=== PATIENT | female | born 1940 | race Caucasian/White ===

== ENCOUNTER 2016-07-07 14:01 | Emergency (ER) | payer MEDICARE ==
[~2016-07-07] VITALS: Ht 157.5 cm; Wt 99.8 kg
[2016-07-07 14:01] VITALS: BP 133/64
[~2016-07-07 14:01] MED LIST changes: -EVIS1TAB PO; -PREV10CA PO
[2016-07-07] MEDS ORDERED: EVIS1TAB PO (14:15)
[2016-07-07] MEDS ORDERED: PREV10CA PO (14:15)
== END 2016-07-07 15:47 | disposition home or self-care (01) ==
LOC: M ED 15:36
DX: K62.5 Hemorrhage of anus and rectum (principal); L30.9 Dermatitis, unspecified

== ENCOUNTER → 2016-07-07 | Outpatient (CLI) | payer MEDICARE ==
[~2016-07-07] MED LIST: /QUIN20TA OR; ASPI81TA45 OR; ATEN100T OR; AVISTA PO; COLA100C2 OR; EVIS1TAB PO; FURO20TA2 OR; PERC7.5T8 OR; PREV10CA PO; QUINIPRIL PO; RALOXIFENE PO; VIT D 2000
[2016-07-07 13:15] LABS: BASO # 0.1 K/mm3 (0.0-0.2); BASO % 0.5 % (0.0-1.0); EOS # 0.1 K/mm3 (0.0-0.50); EOS % 0.7 % (0.0-3.0); LARGE UNSTAINED CELL # 0.1 K/mm3 (0.0-0.4); LARGE UNSTAINED CELL % 0.7 % (0.0-4.0); LYMPH # 0.9 K/mm3 (1.5-4.5); LYMPH % 7.1 % (24.0-44.0); MEAN CORPUSCULAR HEMOGLOBIN 30.2 pg (27.0-33.0); MEAN CORPUSCULAR HGB CONC 31.7 g/dl (32.0-36.5); MEAN CORPUSCULAR VOLUME 95.4 fl (80.0-96.0); MONO # 0.4 K/mm3 (0.0-0.8); MONO % 2.9 % (0.0-5.0); NEUTROPHILS # 10.7 K/mm3 (1.8-7.7); NEUTROPHILS % 88.1 % (36.0-66.0); PLATELET COUNT, AUTOMATED 201 k/mm3 (150-450); RED CELL DISTRIBUTION WIDTH 13.3 % (11.5-14.5); WHITE BLOOD COUNT 12.1 K/mm3 (4.0-10.0)
[2016-07-07 13:30] LABS: ALBUMIN 3.7 GM/DL (3.2-5.2); ALBUMIN/GLOBULIN RATIO 1.48 (1.00-1.93); ALKALINE PHOSPHATASE 58 U/L (45-117); ALT/SGPT 20 U/L (12-78); ANION GAP 9 MEQ/L (8-16); AST/SGOT 17 U/L (15-37); BILIRUBIN,TOTAL 0.5 MG/DL (0.2-1.0); BLOOD UREA NITROGEN 13 MG/DL (7-18); CALCIUM LEVEL 9.2 MG/DL (8.8-10.2); CARBON DIOXIDE LEVEL 30 MEQ/L (21-32); CHLORIDE LEVEL 105 MEQ/L (98-107); CREATININE FOR GFR 0.83 MG/DL (0.55-1.02); GLOMERULAR FILTRATION RATE > 60.0 (>39); GLUCOSE, FASTING 82 MG/DL (83-110); POTASSIUM SERUM 3.9 MEQ/L (3.5-5.1); SODIUM LEVEL 144 MEQ/L (136-145); TOTAL PROTEIN 6.2 GM/DL (6.4-8.2)
--- NOTE | 2016-07-08 05:38 | REP ---
ABDOMEN, FLAT AND UPRIGHT; PA CHEST, THREE VIEWS: HISTORY: Constipation. A small amount of air is present in small and large intestine. There are no air fluid levels or dilated loops of intestine. There is no pneumoperitoneum. Linear density is present in the left lower lobe consistent with atelectasis or scar. The right lung is clear. IMPRESSION: Nonspecific bowel gas pattern. Signed by Brandyn Byrne MD 07/08/2016 08:15 A
== END ==
LOC: M WUC 09:45
PROVIDERS: ATTEND Physician Assistant
DX: K59.00 Constipation, unspecified (principal); R10.819 Abdominal tenderness, unspecified site

== ENCOUNTER → 2016-07-23 | Outpatient (REF) | payer MEDICARE ==
[~2016-07-23] MED LIST changes: +EVIS1TAB PO; +PREV10CA PO
[2016-07-23 14:05] LABS: IMMUNOGLOBULIN G 631 MG/DL (681-1648); IMMUNOGLOBULIN M 34.2 MG/DL (40-230)
[2016-07-25 00:06] LABS: FREE KAPPA LIGHT CHAINS SERUM 13.06 mg/L (3.30-19.40); FREE LAMBDA LIGHT CHAINS SERUM 7.68 mg/L (5.71-26.30); KAPPA/LAMBDA RATIO SERUM 1.7 (0.26-1.65)
[2016-07-25 13:42] LABS: ALBUMIN 3.88 GM/DL (3.29-5.55); ALBUMIN % 64.6 % (55.8-66.1)
== END ==
LOC: M LAB REF 13:08
PROVIDERS: ATTEND Internal Medicine Medical Oncology
DX: C18.9 Malignant neoplasm of colon, unspecified (principal); D47.2 Monoclonal gammopathy

== ENCOUNTER → 2016-07-29 | Outpatient (REF) | payer MEDICARE | LOC: M LAB REF 16:30 | PROVIDERS: ATTEND Nurse Practitioner Family | DX: B00.1 Herpesviral vesicular dermatitis (principal) ==

== ENCOUNTER → 2016-09-19 | Day surgery (SDC) | payer MEDICARE ==
--- NOTE | 2016-09-17 06:29 | CR ---
DATE OF PREOPERATIVE CONSULTATION: 09/16/2016 REQUESTING PHYSICIAN: Dr. Guerrero. To Dr. Guerrero, thank you for asking me to see Ms. Hannah Parry in consultation prior to her dilation and curettage (D and C) hysteroscopy. Ms. Parry is as you know a 76-year-old female with past medical history of colon cancer, hypertension, hyperlipidemia, and monoclonal gammopathy of unknown significance (MGUS), presenting for preoperative optimization. The patient has had a significant decline in her cognitive function over the last several years. She is accompanied by her cousin who assists with answering questions. The patient denies any present symptoms of chest pain, palpitations, syncope or presyncope. She reports her balance is worse and she admits that she has fallen once recently but sustained no significant injuries. The patient's family member who accompanies her today requests that I restart Aricept. The patient had discontinued it in June when I saw her for her annual physical as she felt it was not necessary. Caregiver and son are requesting this be restarted. The patient is questioned about recent bout of shingles. She is unable to recall at and denies any residual pain. The patient complains of a decline in her vision. She was confused and left her recent office call with Dr. Oh before being seen. Patient has MGUS. She was followed by oncology and felt to be stable. She is scheduled to be seen every six months. The patient has had no vaginal bleeding. She does have known endometrial thickening and is being evaluated with Dr. Guerrero with the hysteroscopy D and C. The patient was seen for bleeding earlier this year in Urgent Care and ended up in the emergency room (ER). It was unclear the etiology. She has a known history of colon cancer but is up-to-date with her last colonoscopy October 2015. Bleeding was empirically treated as hemorrhoidal. There has been no recurrence and no significant drop in her hemoglobin. The patient has hyperglycemia. Denies polyuria, polyphasia, polydipsia. Review of systems is otherwise negative. PAST MEDICAL HISTORY 1. Moderately differentiated colon cancer 2010, status post laparoscopic resection with Dr. Patrick. Last colonoscopy normal 10/23. Follows with hematology/oncology. 2. Hypertension. 3. Hyperlipidemia. 4. Obesity. 5. Osteopenia. 6. Status post appendectomy. 7. Hemorrhoids. 8. Endometrial thickening with adenomatous hyperplasia status post D and C in 2002, and endometrial biopsy in 2010. 9. Hepatic cyst by CT, felt to be benign and stable. 10. Osteopenia. 11. Hyperglycemia. 12. Vitamin D deficiency. 13. Right cheek squamous well cell cancer. 14. Monoclonal gammopathy followed by hematology/oncology. 15. Dementia 2016 with normal thyroid stimulating hormone (TSH), B12, venereal disease research laboratory (VDRL) and head CT showing only small vessel disease and mild to moderate cerebral atrophy temporal lobes. 16. Osteoarthritic degenerative joint disease (DJD) with an MRI of the lumbosacral (LS) spine 07/21/2015. 17. Ovarian cyst per CT scan 2015, 5 cm. PATIENT'S MEDICATIONS: - she is on aspirin 325 mg daily as needed - quinapril 40 mg daily - furosemide 20 mg by mouth twice a day - atenolol 50 mg one and a half by mouth daily - Evista 60 mg daily ALLERGIES: The patient's drug allergies are to HYDROCHLOROTHIAZIDE, NORVASC and TETRACYCLINE. FAMILY HISTORY: The patient's family history includes heart disease in the father, a stroke in her mother, brother and sister. SOCIAL HISTORY: The patient has never smoked, occasionally consumes alcohol. PHYSICAL EXAMINATION: Overweight female in no acute distress. Vital signs are weight 221 with a blood pressure 169, recheck 144/80, heart rate is 59, O2 saturation is 98%, and body mass index (BMI) of 39.5. HEENT exam: Head is normocephalic. Neck is supple. Pupils equal, reactive to light. External ocular movements intact. She does wear eyeglasses. Conjunctivae not injected. Sclerae anicteric. Vision grossly intact. Ears: Tympanic membranes, external auditory canals are normal. Tongue midline. Posterior pharynx without inflammation. NECK: Is supple. No thyromegaly, jugular venous distention (JVD) or carotid bruits. RESPIRATORY: Clear to auscultation, resonant to percussion. CARDIOVASCULAR: Regular rate and rhythm. No murmur, rub, gallop. ABDOMEN: Normoactive bowel sounds, soft, nontender. No hepatosplenomegaly. EXTREMITIES: No cyanosis, clubbing or edema. NEUROLOGIC: The patient is able to follow my instructions and answer my questions. She is mildly pleasantly confused. LABORATORY DATA: 09/16/2016: Normal CBC, med profile. Her A1c is 5.7 and total cholesterol of 230 with an HDL of 111. Her EKG is sinus bradycardia rate of 55, axis of minus 2 degrees, normal ND, QRS intervals but slight increase in QTC. No significant change to previous EKG except for the slight increase in QTC. IMPRESSION: Ms. Hannah Parry is a 76-year-old female with cardiovascular risk factors positive for age, obesity, hypertension, who has no signs or symptoms indicative of cardiovascular ischemia and is felt to be at low risk for cardiovascular complications from the proposed surgical intervention which can be further minimized by the followin. Hypertension. Hold furosemide morning of surgery. Take atenolol and quinapril as usual. 2. Osteopenia. Hold Evista on morning of surgery. 3. Alzheimer's dementia. Restart donepezil 5 mg at bedtime, increased to 10 mg next as it is tolerated, She will restart donepezil one week after her surgery. 4. Colon cancer. No evidence of recurrence per colonoscopy 10/23. She did have bleeding earlier this year. Source was unclear, expected to be hemorrhoidal, but there has been no recurrence and no significant drop in her hemoglobin. We have held off on further evaluation and treatment. 5. Hyperglycemia. Dietary advice encouraged. 6. Hyperlipidemia. Triglycerides improved and the patient commended. 7. Osteoarthritic degenerative joint disease (OA DJD). Hold aspirin. Take Tylenol as needed. 8. Monoclonal gammopathy of unknown significance (MGUS). Follows with Dr. Benitez. 9. Visual decline. She will stop in to Dr. Oh's office today and try to get an appointment. Thank you very much for this consultation. Please call with questions or concerns.
[~2016-09-19] VITALS: Ht 157.5 cm; Wt 99.8 kg
[~2016-09-19] MED LIST changes: +ALEV220C2 PO; +AMLO5TAB2 PO; +ATEN50TA2 PO; +DONETAB6 PO; +FURO20TA2 PO; +FURO40TA2 PO; +IBUPROFEN 600 MG TAB PO PRN; +LIDOCAINE 2% INJ 100 MG/5 ML SDV (FOR ANES.) As Ordered ONE; +LR 1,000 ML IV ONE; +LR 1,000 ML IV SCH; +MIDAZOLAM INJ 2 MG/2 ML VIAL (J2250) As Ordered ONE; +ONDANSETRON 4MG/2ML VIAL (J2405) As Ordered ONE; +ONDANSETRON 4MG/2ML VIAL (J2405) IV PRN; +PERCOCET 5MG/325MG TAB PO PRN; +PROPOFOL 200 MG/20 ML VIAL As Ordered ONE; +QUIN1TAB15 PO; +SULA8.5T PO; +ZYRT10CA PO; +fentaNYL 100 MCG/2 ML INJECTION (J3010) As Ordered ONE; +fentaNYL 100 MCG/2 ML INJECTION (J3010) IV PRN
[2016-09-19 18:30] VITALS: BP 167/70
--- NOTE | 2016-09-20 13:39 | RO ---
DATE OF PROCEDURE: 09/19/2016 PREOPERATIVE DIAGNOSIS/INDICATION FOR SURGERY: Postmenopausal bleeding with abnormal ultrasound. POSTOPERATIVE DIAGNOSIS: Postmenopausal bleeding with abnormal ultrasound, endometrial polyp. PROCEDURE PERFORMED: Dilatation and curettage, hysteroscopy, MyoSure, resection of polyp. SURGEON: Joy Guerrero MD DELIVERY CLERK: ANESTHESIA: Laryngeal mask airway (LMA). BRIEF DESCRIPTION OF PROCEDURE AND FINDINGS: Hannah was brought to the operating room where sufficient LMA anesthesia was induced and she was prepped, draped and positioned in the usual sterile fashion with the bladder emptied and the anterior aspect of the cervix grasped with a single tooth tenaculum as the uterus would be accessible from below should that become necessary in the future. The cervix was carefully dilated and the hysteroscope placed, at which point a cavity filling polyp was noted with a lingular shape arising from the posterior fundal aspect of the uterus. This polypoid lesion was resected using the MyoSure in its entirety. After removing the entire lesion and the stalk, and then also sampling the endometrium and endocervical tissues, curettage was also carried out. Pictures were of course taken to document the procedure. The procedure was then ended. ESTIMATED BLOOD LOSS FOR PROCEDURE: About 5 mL. FLUID REPLACEMENT: Crystalloid. COMPLICATIONS: None. CONDITION AND DISPOSITION: Hannah tolerated the procedure well and was recovering in the recovery room in good condition.
== END | disposition home or self-care (01) ==
LOC: M SDC 13:09
PROVIDERS: ATTEND Obstetrics & Gynecology
DX: N95.0 Postmenopausal bleeding (principal); N84.0 Polyp of corpus uteri; R93.5 Abnormal findings on diagnostic imaging of other abdominal regions, including retroperitoneum; I10 Essential (primary) hypertension; F03.90 Unspecified dementia, unspecified severity, without behavioral disturbance, psychotic disturbance, mood disturbance, and anxiety; M12.9 Arthropathy, unspecified; E78.5 Hyperlipidemia, unspecified; D47.2 Monoclonal gammopathy; E66.9 Obesity, unspecified; M85.80 Other specified disorders of bone density and structure, unspecified site; K64.9 Unspecified hemorrhoids; K76.89 Other specified diseases of liver; R73.9 Hyperglycemia, unspecified; M51.37 Other intervertebral disc degeneration, lumbosacral region; N83.209 Unspecified ovarian cyst, unspecified side; Z88.1 Allergy status to other antibiotic agents; Z88.2 Allergy status to sulfonamides; Z88.8 Allergy status to other drugs, medicaments and biological substances; Z79.899 Other long term (current) drug therapy; Z85.030 Personal history of malignant carcinoid tumor of large intestine
CPT/HCPCS: 58558; 88305; J2250; J2405; J3010

== ENCOUNTER 2016-10-08 11:36 | Observation (INO) | payer MEDICARE ==
[~2016-10-08] VITALS: Ht 162.6 cm; Wt 97.6 kg
[~2016-10-08 11:36] MED LIST changes: -ALEV220C2 PO; -AMLO5TAB2 PO; -DONETAB6 PO; -FURO20TA2 PO; -IBUPROFEN 600 MG TAB PO PRN; -LIDOCAINE 2% INJ 100 MG/5 ML SDV (FOR ANES.) As Ordered ONE; -LR 1,000 ML IV ONE; -LR 1,000 ML IV SCH; -MIDAZOLAM INJ 2 MG/2 ML VIAL (J2250) As Ordered ONE; -ONDANSETRON 4MG/2ML VIAL (J2405) As Ordered ONE; -ONDANSETRON 4MG/2ML VIAL (J2405) IV PRN; -PERCOCET 5MG/325MG TAB PO PRN; -PROPOFOL 200 MG/20 ML VIAL As Ordered ONE; -SULA8.5T PO; -ZYRT10CA PO; -fentaNYL 100 MCG/2 ML INJECTION (J3010) As Ordered ONE; -fentaNYL 100 MCG/2 ML INJECTION (J3010) IV PRN
[2016-10-08] MEDS ORDERED: SULA8.5T PO (11:52)
[2016-10-08] MEDS ORDERED: ZYRT10CA PO (11:52)
[2016-10-08] MEDS: NS 1,000 ML IV SCH ×2 (12:08→16:36)
[2016-10-08] MEDS ORDERED: CHARCOAL ACTIVATED LIQUID 25 GM/120 ML BTL PO ONE (12:30)
[2016-10-08 13:10] LABS: BASO % 0.9 % (0.0-1.0); EOS # 0.1 K/mm3 (0.0-0.50); EOS % 1.2 % (0.0-3.0); LARGE UNSTAINED CELL # 0.1 K/mm3 (0.0-0.4); LARGE UNSTAINED CELL % 1.5 % (0.0-4.0); LYMPH # 1.5 K/mm3 (1.5-4.5); LYMPH % 26.1 % (24.0-44.0); MEAN CORPUSCULAR HEMOGLOBIN 32.4 pg (27.0-33.0); MEAN CORPUSCULAR HGB CONC 33.7 g/dl (32.0-36.5); MEAN CORPUSCULAR VOLUME 96.2 fl (80.0-96.0); MONO # 0.3 K/mm3 (0.0-0.8); MONO % 5.3 % (0.0-5.0); NEUTROPHILS # 3.6 K/mm3 (1.8-7.7); PLATELET COUNT, AUTOMATED 210 k/mm3 (150-450); RED CELL DISTRIBUTION WIDTH 13.4 % (11.5-14.5); WHITE BLOOD COUNT 5.6 K/mm3 (4.0-10.0)
[2016-10-08 13:17] LABS: ALBUMIN 3.7 GM/DL (3.2-5.2); ALBUMIN/GLOBULIN RATIO 1.37 (1.00-1.93); ALKALINE PHOSPHATASE 56 U/L (45-117); ALT/SGPT 23 U/L (12-78); ANION GAP 11 MEQ/L (8-16); AST/SGOT 19 U/L (15-37); BILIRUBIN,DIRECT 0.2 MG/DL (0.0-0.2); BILIRUBIN,TOTAL 0.5 MG/DL (0.2-1.0); BLOOD UREA NITROGEN 12 MG/DL (7-18); CALCIUM LEVEL 9.3 MG/DL (8.8-10.2); CARBON DIOXIDE LEVEL 24 MEQ/L (21-32); CHLORIDE LEVEL 107 MEQ/L (98-107); CREATININE FOR GFR 0.85 MG/DL (0.55-1.02); GLOMERULAR FILTRATION RATE > 60.0 (>39); GLUCOSE, FASTING 93 MG/DL (83-110); POTASSIUM SERUM 3.6 MEQ/L (3.5-5.1); SODIUM LEVEL 142 MEQ/L (136-145); TOTAL PROTEIN 6.4 GM/DL (6.4-8.2)
[2016-10-08] MEDS ORDERED: DONETAB6 PO (13:53)
[2016-10-08] MEDS ORDERED: FURO20TA2 PO (13:53)
[2016-10-08] MEDS ORDERED: ALEV220C2 PO (13:53)
[2016-10-08] MEDS ORDERED: ONDANSETRON 4MG/2ML VIAL (J2405) IV PRN (14:30)
[2016-10-08] MEDS ORDERED: ACETAMINOPHEN TAB 650MG DOSE (2X325MG) PO PRN (14:30)
[2016-10-08 16:30] VITALS: BP 145/91
[2016-10-08] MEDS: SENOKOT S TAB PO SCH ×2 (16:39→21:00)
[2016-10-08] MEDS: HEPARIN SOD (PORCINE) 5000 UNITS/ML VIAL SC SCH ×2 (16:40→21:32)
[2016-10-08 20:00] VITALS: BP 171/75
--- NOTE | 2016-10-08 22:39 | HPE ---
DATE OF ADMISSION: 10/08/2016 TIME PATIENT WAS SEEN: 1300. PRIMARY CARE PROVIDER: Dr. Dorcas Mckenna. CHIEF COMPLAINT: Overdose. HISTORY OF PRESENT ILLNESS: A 76-year-old female with a past medical history of colon cancer, hypertension, hyperlipidemia, monoclonal gammopathy of determined significance (MGUS), hyperglycemia, endometrial thickening with hyperplasia, osteopenia, hemorrhoid, vitamin D deficiency, right cheek squamous cell carcinoma, Alzheimer dementia, osteoarthritis, visual decline, cholelithiasis, presented with possible overdose on calcium channel ketan. Patient was interviewed in the emergency room. Patient appear to be an extremely poor historian. Was at least moderately to severely demented. Patient does not remember what happened. Patient told me possibly she took five pills of her calcium channel ketan, which is nisoldipine five pills more than what she should have been taking. She stated that she just picked up the medication yesterday; however, this morning she took the medication several times, and she does remember she took it. She also stated that she had a recent procedure done in her groin a week ago. Upon reviewing the chart, it appeared that patient had a dilation and curettage on September 20, which is about 2 weeks, with Dr. Guerrero. Pathology only shows normal tissue, however. Patient also stated 2 weeks ago she had one-time vomitus. Yesterday she could not quite remember what happened; however, she has been feeling lightheaded currently and worse when she stood up. She admits to some chest pain; however, she could not specify when it started, if is sharper, though. She stated the chest pain has resolved now. Poison control was contacted in the emergency room and recommended charcoal, which she received. 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 She was pleasant and denied any chest pain, trouble breathing, abdominal pains, nausea, vomiting, diarrhea, or constipation currently. Denies any discomfort anywhere currently. ALLERGIES: Patient was allergic to AMLODIPINE, HYDROCHLOROTHIAZIDE, SULFA DRUGS, and TETRACYCLINE. HOME MEDICATIONS: - Aleve 220 mg one tablet by mouth four times a day as needed - atenolol 75 mg one tablet by mouth daily - cetirizine 1 mg one tablet by mouth daily - donepezil 10 mg one tablet by mouth daily - furosemide 20 mg one tablet by mouth twice a day - Nisoldipine 8.5 mg one tablet by mouth daily - quinapril 40 mg one tablet by mouth daily - raloxifene hydrochloride 60 mg one tablet by mouth daily PAST MEDICAL HISTORY: 1. Colon cancer in 2010 status post resection and reanastomosis. Last colonoscopy was in 2005, and it was normal. 2. Hypertension. 3. Hyperlipidemia. 4. MGUS. 5. Hyperglycemia. 6. Endometrial thickening and hyperplasia, status post recent dilatation and curettage. 7. Osteopenia. 8. Hemorrhoids. 9. Vitamin D deficiency. 10. Right cheek squamous cell carcinoma. 11. Dementia, Alzheimer's. 12. Osteoarthritis. 13. Visual decline. 14. Cholelithiasis. PAST SURGICAL HISTORY: 1. Colon resection and reanastomosis. 2. Recent dilatation and curettage. 3. Squamous cell carcinoma removal. 4. Appendectomy. SOCIAL HISTORY: Patient denies any smoking, drinking, or recreational drug use. 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 She does have another retired nurse come to visit her a few times a week. Her two sons are living in [place], who might be coming in a week from now. FAMILY HISTORY: Father had heart disease, and mother had a stroke. REVIEW OF SYSTEMS: Due to patient is severely demented, review of systems likely unreliable; however, patient did deny any fevers or chills, any abdominal pains, nausea, vomiting, diarrhea, or constipation. Denies any chest pain, trouble breathing. Denies any blood in urine or stool. Denies any weakness on any one side of her body. She did admit to 20-pound weight loss, however, which patient could not go into detail. She stated that she does not want to eat recently. PHYSICAL EXAMINATION: VITAL SIGNS: Temperature 97.3, pulse 62, respirations 18, blood pressure 120/68, oxygen was saturating at 95%on room air. GENERAL: Patient is a pleasant, obese, elderly female who was alert, awake, oriented to herself only. Does not know the location or the year initially; however, upon prompting, patient realized it is 2016 and it was [facility]. She has worked for many years in the past. Patient was sitting up comfortably in her chair. HEENT: Normocephalic, atraumatic. Extraocular motor intact. Mucosa moist. NECK: Supple. No neck lymphadenopathy. CARDIOVASCULAR: Regular rate and rhythm, normal S1, S2. Difficult to auscultation due to increased anterior-posterior (AP) diameter. LUNGS: Clear to auscultation bilaterally. No wheezes, rales, or rhonchi. ABDOMEN: Positive bowel sounds. Soft, nontender, nondistended. No peritoneal signs. No ecchymosis. EXTREMITIES: No edema, clubbing, or cyanosis. SKIN: Warm and dry. NEUROLOGIC: Cranial nerves II-XII intact. No focal neurologic deficit. LABORATORY DATA: WBC 5.6, hemoglobin 14.6, hematocrit 43.2, platelet count of 210, and MCV of 96.2. Sodium 142, potassium 3.6, chloride 107, bicarbonate 24, anion gap was 14, BUN 12, creatinine 0.85, GFR greater than 60, fasting glucose 93, calcium 9.3. Total bilirubin 0.5, direct bilirubin 0.2, AST 19, ALT 23, alkaline phosphatase 59. Total CK 77, CK-MB 1. Troponin less than 0.02. Total protein 6.4, albumin 3.7. TSH was 1.34. Patient salicylate level and acetaminophen level were both low. No new cultures. No new images. ASSESSMENT AND PLAN: A 76-year-old female with multiple comorbidities, most significantly her Alzheimer dementia, which is at least moderate to severe. Also colon cancer in 2000, status post resection, hypertension, hyperlipidemia, presented with: 1. Possible calcium channel ketan overdose, on nisoldipine 8.5 mg tablet. Patient possibly took five to six tablets. Poison control was contacted. They recommended due to patient's mild symptoms and with stable blood pressure and no changes on EKG, patient may be monitored for 24 hours then discharged. Patient's EKG was reviewed, which showed no [place] prolongation. Ventricular rate was in 60s. Patient has been maintained on intravenous (IV) fluid. If patient develops hypotension, we will consider calcium salt, atropine, vasopressin, IV fluid, and also the cause of the hypotension. Will also consider insulin with D5. 2. History of colon cancer in 2010, last colonoscopy in 2016. Continue to monitor. 3. Hypertension. Patient's blood pressure, per patient, was 190s yesterday, however, today was 145. Will restart blood pressure medication. 4. Will continue patient on atenolol 75 mg and hold if systolic blood pressure is less than or equal to 150 or heart rate is less than or equal to 70 as well as quinapril 40 mg one tablet by mouth daily. Hold if systolic blood pressure is less than or equal to 160. 5. History of hyperlipidemia. At this point, patient is not on any statin. Continue to monitor. 6. History of osteopenia. 7. History of hemorrhoid. Continue to monitor for any signs of anemia. 8. Vitamin D deficiency. Continue to monitor. 9. Right-sided cheek squamous cell carcinoma, currently stable. No issues. 10. Moderate to severe Alzheimer dementia. Patient lives alone next to her friend, who was also a nurse, who they take care of each other. Patient possibly needs to be placed so that patient will not be giving herself medication. 11. Visual decline. Continue to monitor. 12. Cholelithiasis. Currently no abdominal pain. Patient was seen in the emergency room. Patient likely has calcium channel ketan overdose; however, so far, vital signs are stable. Will continue to monitor patient's blood pressure closely in the progressive care unit (PCU). In addition, due to patient cannot likely take care of herself, will discuss with her family regarding possible placement versus additional care at home. Patient has been discussed with attending doctor. Dr. Angelica Hawkins. My preceptor for this patient encounter was Dr. Angelica Hawkins. The preceptor was physically present in the building during the encounter and was fully available as needed. All aspects of the patient interview, examination, medical decision making process, and medical care plan development were reviewed and approved by the preceptor. The preceptor is aware and concurs with the plan as stated in the body of this note and will attest to such by his/her co-signature. I have seen and examined the patient, and discussed the case with the resident. I agree with the following assessment mentioned above. Patient denied suicidal ideation. Accidently took extra dose. Treat as above and recommended pill sorting box for each day of the week. MTDD
[2016-10-09] VITALS (7 sets, daily range): BP systolic 116–170; BP diastolic 56–80
[2016-10-09] MEDS: HEPARIN SOD (PORCINE) 5000 UNITS/ML VIAL SC SCH ×3 (05:39→21:39)
[2016-10-09 06:21] LABS: BASO % 0.9 % (0.0-1.0); EOS # 0.2 K/mm3 (0.0-0.50); EOS % 3.6 % (0.0-3.0); LARGE UNSTAINED CELL # 0.1 K/mm3 (0.0-0.4); LARGE UNSTAINED CELL % 2.6 % (0.0-4.0); LYMPH # 1.5 K/mm3 (1.5-4.5); LYMPH % 31.6 % (24.0-44.0); MEAN CORPUSCULAR HEMOGLOBIN 32.5 pg (27.0-33.0); MEAN CORPUSCULAR HGB CONC 33.8 g/dl (32.0-36.5); MEAN CORPUSCULAR VOLUME 96.2 fl (80.0-96.0); MONO # 0.3 K/mm3 (0.0-0.8); MONO % 6.2 % (0.0-5.0); NEUTROPHILS # 2.4 K/mm3 (1.8-7.7); NEUTROPHILS % 55.1 % (36.0-66.0); PLATELET COUNT, AUTOMATED 189 k/mm3 (150-450); RED CELL DISTRIBUTION WIDTH 13.4 % (11.5-14.5); WHITE BLOOD COUNT 4.4 K/mm3 (4.0-10.0)
[2016-10-09 06:32] LABS: ALKALINE PHOSPHATASE 46 U/L (45-117); ALT/SGPT 18 U/L (12-78); ANION GAP 10 MEQ/L (8-16); AST/SGOT 14 U/L (15-37); BILIRUBIN,TOTAL 0.4 MG/DL (0.2-1.0); BLOOD UREA NITROGEN 9 MG/DL (7-18); CALCIUM LEVEL 8.6 MG/DL (8.8-10.2); CARBON DIOXIDE LEVEL 24 MEQ/L (21-32); CHLORIDE LEVEL 112 MEQ/L (98-107); CREATININE FOR GFR 0.69 MG/DL (0.55-1.02); GLOMERULAR FILTRATION RATE > 60.0 (>39); GLUCOSE, FASTING 97 MG/DL (83-110); POTASSIUM SERUM 3.6 MEQ/L (3.5-5.1); SODIUM LEVEL 146 MEQ/L (136-145); TOTAL PROTEIN 5.3 GM/DL (6.4-8.2)
--- NOTE | 2016-10-09 08:44 | ECGEPIP ---
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 Prominent R waves in V2 and V3; Right ventricular hypertrophy versus prior posterior wall AR. No prior tracing for comparison. Clinical correlation advised. Electronically Signed On 10-09-2016 8:44:16 EDT by Eliazar Moser
[2016-10-09] MEDS ORDERED: SLF 3 ML SYR IV PRN (08:45)
[2016-10-09] MEDS: QUINAPRIL 20 MG TAB PO SCH (09:00)
[2016-10-09] MEDS: SENOKOT S TAB PO SCH ×2 (09:54→21:39)
[2016-10-09] MEDS: FUROSEMIDE 20 MG TAB PO SCH ×2 (09:55→17:18)
[2016-10-09] MEDS: ATENOLOL 50 MG TAB PO SCH (09:56)
[2016-10-09] MEDS: amLODIPine 5 MG TAB PO SCH (09:56)
[2016-10-09] MEDS: CETIRIZINE (ZyrTEC) 10 MG TAB PO SCH (09:56)
--- NOTE | 2016-10-09 12:39 | IPNPDOC ---
Text Note Date of Service The patient was seen on 10/09/16. NOTE Subjective: Patient seen and examined at bedside. She was bradycardic in the 40s last night. Patient is better today. She appears to have better memory. She still doesnt remember what happened or why she is in the hospital. Denies any chest pain, sob, abdominal pain, nausea, vomiting, diarrhea, constipation, blood in urine or stool. Denies any other current new complaints. Objective: Vitals: (See below) General: Patient is pleasant obese elderly lady sitting at the side of her bed. AAOx3, not in apparent distress, with head elevated at 90 degrees HEENT: Normal cephalic atraumatic, Extraocular motion intact, pupil equal round and reactive to light, ~mucosal membrane moist, neck supple, no neck lymphadenopathy Cardio: RRR, Normal S1, S2, No murmur/rubs/gallops Pulm: Clear to auscultations bilaterally, no wheezing, rales, or rhonchi. Abdomen: + bowel sounds, soft, none tender, none distended, no peritoneal signs , no ecchymosis, no masses that were palpable Ext: No edema, clubbing, or cynosis Skin: Warm and dry Neuro: Cranial Nerve 2 through 12 intact, No focal neurological deficit Labs ( See below) Most significantly: Images/Procedures: Assessment and Plan: A 76-year-old female with multiple comorbidities, most significantly her Alzheimer dementia, which is at least moderate to severe. Also colon cancer in 2000, status post resection, hypertension, hyperlipidemia, presented with: 1. Possible calcium channel ketan overdose - Bradycardic overnight in the 40s, however patient was not symptomatic - Continue cardiac telemetry 2. History of colon cancer in 2010, last colonoscopy in 2016. Continue to monitor. 3. Hypertension. - Started her on Norvasc 5 mg - Continue Atenolol, quinapril with hold prameters 5. History of hyperlipidemia. At this point, patient is not on any statin. Continue to monitor. 6. History of osteopenia. 7. History of hemorrhoid. Continue to monitor for any signs of anemia. 8. Vitamin D deficiency. Continue to monitor. 9. Right-sided cheek squamous cell carcinoma, currently stable. No issues. 10. Moderate to severe Alzheimer dementia. Patient lives alone next to her friend, who was also a nurse, who they take care of each other. Patient possibly needs to be placed so that patient will not be giving herself medication. 11. Visual decline. Continue to monitor. 12. Cholelithiasis. Currently no abdominal pain. DVT prophylaxis: sc heparin Fluid, Electrolytes, Nutrition: Regular diet Code: Not discussed Disposition: Possible placement due to patient appears to be very demented VS,Fishbone, I+O VS, Fishbone, I+O Laboratory Tests 10/08/16 12:45 Red Blood Count 4.50, Mean Corpuscular Volume 96.2 H, Mean Corpuscular Hemoglobin 32.4, Mean Corpuscular Hemoglobin Concent 33.7, Red Cell Distribution Width 13.4, Neutrophils (%) (Auto) 65.0, Lymphocytes (%) (Auto) 26.1, Monocytes (%) (Auto) 5.3 H, Eosinophils (%) (Auto) 1.2, Basophils (%) ( Auto) 0.9, Neutrophils # (Auto) 3.6, Lymphocytes # (Auto) 1.5, Monocytes # (Auto ) 0.3, Eosinophils # (Auto) 0.1, Basophils # (Auto) 0.0 10/09/16 05:38 Red Blood Count 3.97 L, Mean Corpuscular Volume 96.2 H, Mean Corpuscular Hemoglobin 32.5, Mean Corpuscular Hemoglobin Concent 33.8, Red Cell Distribution Width 13.4, Neutrophils (%) (Auto) 55.1, Lymphocytes (%) (Auto) 31.6, Monocytes (%) (Auto) 6.2 H, Eosinophils (%) (Auto) 3.6 H, Basophils (%) ( Auto) 0.9, Neutrophils # (Auto) 2.4, Lymphocytes # (Auto) 1.5, Monocytes # (Auto ) 0.3, Eosinophils # (Auto) 0.2, Basophils # (Auto) 0.0, Calcium Level 8.6 L, Aspartate Amino Transf (AST/SGOT) 14 L, Alanine Aminotransferase (ALT/SGPT) 18, Alkaline Phosphatase 46, Total Bilirubin 0.4, Total Protein 5.3 L, Albumin 3.0 L Vital Signs Date Time Temp Pulse Resp B/P (MAP) Pulse Ox O2 Delivery O2 Flow Rate FiO2 10/09/16 11:52 97.7 70 18 116/56 (76) 98 Room Air I&O- Last 24 Hours up to 6 AM 10/09/16 06:00 Intake Total 1575 ml Output Total 0 ml Balance 1575 ml GME ATTESTATION GME ATTESTATION My preceptor for this patient encounter was physically present in the building during the encounter and was fully available. As needed, all aspects of the patient interview, examination, medical decision making process, and medical care plan development were reviewed and approved by the preceptor. Preceptor is aware and concurs with the plan as stated in the body of this note and will attest to such by his/her cosignature. ATTENDING NOTE I, Doroteo Pleitez, have both independently examined this patient as well as reviewed the documentation. I have discussed in detail with the resident the findings and plan of treatment as documented in the residents documentation. I will continue to follow the patient and offer further guidance to the patients care as necessary during this hospital stay. RAYRAY MIDDLETON DO Oct 09, 2016 12:39 DOROTEO PLEITEZ MD Oct 12, 2016 17:32
--- NOTE | 2016-10-09 13:58 | ECGEPIP ---
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
[2016-10-09] MEDS: SLF 3 ML SYR IV SCH ×2 (14:00→21:41)
[2016-10-10 04:00] VITALS: BP 156/74
[2016-10-10] MEDS: HEPARIN SOD (PORCINE) 5000 UNITS/ML VIAL SC SCH (05:18)
[2016-10-10] MEDS: SLF 3 ML SYR IV SCH (05:19)
[2016-10-10 06:28] LABS: EOS # 0.2 K/mm3 (0.0-0.50); EOS % 3.4 % (0.0-3.0); LARGE UNSTAINED CELL # 0.1 K/mm3 (0.0-0.4); LYMPH # 1.5 K/mm3 (1.5-4.5); LYMPH % 27.3 % (24.0-44.0); MEAN CORPUSCULAR HEMOGLOBIN 32.6 pg (27.0-33.0); MEAN CORPUSCULAR HGB CONC 34.8 g/dl (32.0-36.5); MEAN CORPUSCULAR VOLUME 93.6 fl (80.0-96.0); MONO # 0.3 K/mm3 (0.0-0.8); MONO % 5.3 % (0.0-5.0); NEUTROPHILS # 3.2 K/mm3 (1.8-7.7); NEUTROPHILS % 61.1 % (36.0-66.0); PLATELET COUNT, AUTOMATED 195 k/mm3 (150-450); RED CELL DISTRIBUTION WIDTH 13.3 % (11.5-14.5); WHITE BLOOD COUNT 5.2 K/mm3 (4.0-10.0)
[2016-10-10 06:50] LABS: ALBUMIN 3.3 GM/DL (3.2-5.2); ALBUMIN/GLOBULIN RATIO 1.18 (1.00-1.93); ALKALINE PHOSPHATASE 52 U/L (45-117); ALT/SGPT 21 U/L (12-78); ANION GAP 10 MEQ/L (8-16); AST/SGOT 16 U/L (15-37); BILIRUBIN,TOTAL 0.4 MG/DL (0.2-1.0); BLOOD UREA NITROGEN 9 MG/DL (7-18); CALCIUM LEVEL 9.1 MG/DL (8.8-10.2); CARBON DIOXIDE LEVEL 25 MEQ/L (21-32); CHLORIDE LEVEL 110 MEQ/L (98-107); GLOMERULAR FILTRATION RATE > 60.0 (>39); GLUCOSE, FASTING 98 MG/DL (83-110); POTASSIUM SERUM 3.3 MEQ/L (3.5-5.1); SODIUM LEVEL 145 MEQ/L (136-145); TOTAL PROTEIN 6.1 GM/DL (6.4-8.2)
[2016-10-10] MEDS ORDERED: POTASSIUM CHLORIDE 10 MEQ SR TABLET PO ONE (07:45)
[2016-10-10 08:00] VITALS: BP 139/84
[2016-10-10 10:06] VITALS: BP 139/84
[2016-10-10] MEDS: QUINAPRIL 20 MG TAB PO SCH (10:06)
[2016-10-10] MEDS: CETIRIZINE (ZyrTEC) 10 MG TAB PO SCH (10:07)
[2016-10-10] MEDS: ATENOLOL 50 MG TAB PO SCH (10:07)
[2016-10-10] MEDS: SENOKOT S TAB PO SCH (10:07)
[2016-10-10] MEDS: amLODIPine 5 MG TAB PO SCH (10:08)
[2016-10-10] MEDS: FUROSEMIDE 20 MG TAB PO SCH (10:08)
[2016-10-10] MEDS ORDERED: AMLO5TAB2 PO (11:11)
[2016-10-10 12:32] LABS: MAGNESIUM LEVEL 2.1 MG/DL (1.8-2.4)
--- NOTE | 2016-10-10 18:05 | DSES ---
DATE OF ADMISSION: 10/08/2016 DATE OF DISCHARGE: 10/10/2016 TIME PATIENT WAS SEEN: Around 8:00 p.m. ADMISSION DIAGNOSES: 1. Possible calcium channel ketan overdose, on Nisoldipine. 2. History of colon cancer, status post resection and reanastomosis in 2010. 3. History of hypertension. 4. History of hyperlipidemia. 5. History of osteopenia. 6. History of hemorrhoids. 7. Vitamin D deficiency. 8. Right-sided cheek squamous cell carcinoma. 9. Moderate to severe Alzheimer's dementia. 10. Visual decline. 11. Cholelithiasis. DISCHARGE DIAGNOSES: 1. Calcium channel ketan overdose. 2. Moderate to severe Alzheimer's dementia. 3. History of colon cancer. 4. Hypertension. 5. Hyperlipidemia. 6. Osteopenia. 7. History of hemorrhoids. 8. Vitamin D deficiency. 9. Right-sided cheek squamous cell carcinoma. 10. Visual decline. 11. Cholelithiasis. CONSULTANTS: None. PROCEDURES AND IMAGING: None. LABS THAT ARE PENDING: None. HISTORY OF THE PRESENT ILLNESS: A 76-year-old female with a past medical history of colon cancer, hypertension, hyperlipidemia, MGUS, hyperglycemia, endometrial thickening with hyperplasia, osteopenia, hemorrhoids, vitamin D deficiency, right cheek squamous cell carcinoma, Alzheimer's dementia, osteoarthritis, visual decline, cholelithiasis, presented with a possible overdose on calcium channel ketan. The patient was interviewed in the emergency room. She appeared to be an extremely poor historian, was unable to get a good history and was unable to depict the story very well on how she overdosed. The patient said that she possibly took five pills and earlier told the emergency room physician she possibly took six pills, and she just picked up her medication on the day prior to admission. She also stated she had a groin procedure a week ago. Looking back in the chart, she had a dilation and curettage on 09/20/2016, roughly 2 weeks ago, by Dr. Guerrero. In addition, pathology showed normal tissue. The patient also had a one-time vomitus 2 weeks ago. The patient also admits to poor memory, admits to some chest pain at times; however, denies any currently. The patient could not specify that she has pain; however, Poison Control was contacted in the emergency room, recommended activated charcoal, which she received. 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 She was pleasant and currently denies any trouble breathing, abdominal pain, nausea, vomiting, diarrhea, constipation. Denies any discomfort anywhere. HOSPITAL COURSE: For the patient's possible calcium channel ketan overdose, the patient was admitted to the progressive care unit (PCU) with cardiac telemetry. There was no ME prolongation on EKG. The patient received intravenous (IV) fluid. We were closely in touch with Poison Control regarding her situation. The patient's calcium channel ketan was on hold. The patient's home blood pressure medication was placed on hold parameters, which the patient did not receive until the next day. And overnight on cardiac telemetry, the patient had bradycardia in the 40s. However, she was not symptomatic. Blood pressure was stable, and the patient passed physical therapy on the second day. On the third day, the patient's son came from [place] to pick her up and to take her with him to [place], and the patient's friend was also called, confirmed that the patient likely has severe dementia at baseline, according to her interaction with her. The patient's friend believes that the patient will receive good care once moved to [place] to live with the rest of her family. Discharged to home. DISCHARGE CONDITION: Stable. DISCHARGE MEDICATIONS: Including new medications: - amlodipine 5 mg by mouth daily Continue home medications including: - Aleve 220 mg one tablet by mouth four times a day - atenolol 75 mg one tablet by mouth daily - cetirizine 10 mg one tablet by mouth daily - donepezil 10 mg one tablet by mouth daily - Lasix 20 mg one tablet by mouth twice a day - quinapril 40 mg one tablet by mouth daily - raloxifene 60 mg one tablet by mouth daily STOPPED MEDICATIONS: Including - Nisoldipine FOLLOWUP: The patient should followup with new primary care as soon as she can and should establish a new primary care provider in [place] as soon as she can. ADDITIONAL INSTRUCTIONS: If the patient develops any additional dizziness or confusion, the patient should call primary care or go to the emergency room. The patient should be closely monitored for worsening dementia and eventual placement with a snf might be a better long-term solution. However, it cannot be performed due to the patient's son is taking the patient to [place]. The patient has been discussed with attending doctor, Dr. Perez. My preceptor for this patient encounter was Dr. Doroteo Perez. The preceptor was physically present in the building during the encounter and was fully available. As needed, all aspects of the patient interview, examination, medical decision making process, and medical care plan development were reviewed and approved by the preceptor. The preceptor is aware and concurs with the plan as stated in the body of this note and will attest to such by his/her cosignature. I, Doroteo Perez, have both independently examined this patient as well as reviewed the documentation. I have discussed in detail with the resident the findings and plan of treatment as documented in the residents documentation. I will continue to follow the patient and offer further guidance to the patients care as necessary during this hospital stay. [place]
== END 2016-10-10 12:27 | disposition home or self-care (01) ==
LOC: M ED 12:49 → M ED INP 14:52 → M PCU 16:18
PROVIDERS: ADMIT Internal Medicine; ATTEND Internal Medicine
DX: T46.1X1A Poisoning by calcium-channel blockers, accidental (unintentional), initial encounter (principal); R42 Dizziness and giddiness; X58.XXXA Exposure to other specified factors, initial encounter; Y92.099 Unspecified place in other non-institutional residence as the place of occurrence of the external cause; G30.9 Alzheimer's disease, unspecified; F02.80 Dementia in other diseases classified elsewhere, unspecified severity, without behavioral disturbance, psychotic disturbance, mood disturbance, and anxiety; Z85.038 Personal history of other malignant neoplasm of large intestine; I10 Essential (primary) hypertension; E78.5 Hyperlipidemia, unspecified; M85.88 Other specified disorders of bone density and structure, other site; E55.9 Vitamin D deficiency, unspecified; Z87.19 Personal history of other diseases of the digestive system; Z85.828 Personal history of other malignant neoplasm of skin; H54.7 Unspecified visual loss; R00.1 Bradycardia, unspecified; D47.2 Monoclonal gammopathy; Z79.899 Other long term (current) drug therapy; Z79.1 Long term (current) use of non-steroidal anti-inflammatories (NSAID); Z88.8 Allergy status to other drugs, medicaments and biological substances; Z88.2 Allergy status to sulfonamides; Z88.1 Allergy status to other antibiotic agents
CPT/HCPCS: 36415; 80048; 80053; 80076; 82550; 82553; 83735; 84443; 84484; 85025; 93005; 93041; 94760; 96372; 97161; 99285; G0378; G0480

== ENCOUNTER 2016-10-13 06:26 | Emergency (ER) | payer MEDICARE ==
[~2016-10-13] VITALS: Ht 157.5 cm; Wt 96.4 kg
[~2016-10-13 06:26] MED LIST changes: +ALEV220C2 PO; +AMLO5TAB2 PO; +DONETAB6 PO; +FURO20TA2 PO; +SULA8.5T PO; +ZYRT10CA PO
[2016-10-13] MEDS: NS 1,000 ML IV SCH ×2 (07:39→08:46)
[2016-10-13 08:46] LABS: ALBUMIN 3.4 GM/DL (3.2-5.2); ALBUMIN/GLOBULIN RATIO 1.26 (1.00-1.93); ALKALINE PHOSPHATASE 59 U/L (45-117); ALT/SGPT 26 U/L (12-78); ANION GAP 11 MEQ/L (8-16); AST/SGOT 18 U/L (15-37); BILIRUBIN,DIRECT 0.2 MG/DL (0.0-0.2); BILIRUBIN,TOTAL 0.7 MG/DL (0.2-1.0); BLOOD UREA NITROGEN 15 MG/DL (7-18); CALCIUM LEVEL 9.1 MG/DL (8.8-10.2); CARBON DIOXIDE LEVEL 23 MEQ/L (21-32); CHLORIDE LEVEL 109 MEQ/L (98-107); GLOMERULAR FILTRATION RATE > 60.0 (>39); GLUCOSE, FASTING 112 MG/DL (83-110); POTASSIUM SERUM 3.8 MEQ/L (3.5-5.1); SODIUM LEVEL 143 MEQ/L (136-145); TOTAL PROTEIN 6.1 GM/DL (6.4-8.2)
[2016-10-13 08:58] LABS: BASO % 0.5 % (0.0-1.0); EOS # 0.1 K/mm3 (0.0-0.50); EOS % 1.2 % (0.0-3.0); LARGE UNSTAINED CELL # 0.1 K/mm3 (0.0-0.4); LARGE UNSTAINED CELL % 1.7 % (0.0-4.0); LYMPH % 16.4 % (24.0-44.0); MEAN CORPUSCULAR HEMOGLOBIN 32.3 pg (27.0-33.0); MEAN CORPUSCULAR HGB CONC 34.3 g/dl (32.0-36.5); MEAN CORPUSCULAR VOLUME 94.2 fl (80.0-96.0); MONO # 0.3 K/mm3 (0.0-0.8); MONO % 5.2 % (0.0-5.0); NEUTROPHILS # 4.3 K/mm3 (1.8-7.7); PLATELET COUNT, AUTOMATED 186 k/mm3 (150-450); RED CELL DISTRIBUTION WIDTH 13.4 % (11.5-14.5); WHITE BLOOD COUNT 5.7 K/mm3 (4.0-10.0)
[2016-10-13] MEDS ORDERED: GASTROGRAFIN SOLUTION 30ML PO ONE (09:25)
[2016-10-13] MEDS ORDERED: GASTROGRAFIN SOLUTION 30ML (Q9963) PO ONE (09:55)
[2016-10-13] MEDS ORDERED: ISOVUE-370 76% 100ML VIAL (Q9967) As Ordered ONE (10:44)
--- NOTE | 2016-10-13 10:51 | REP ---
ACUTE ABDOMINAL SERIES: 10/13/2016. Comparison: 07/07/2016, CT abdomen and pelvis 08/24/2015. Clinical history: Abdominal pain. Findings: PA chest: Supine chest show the lungs well inflated and without infiltrate, effusion, atelectasis or mass. The heart, mediastinal and hilar contours are normal. The aorta is mildly tortuous but unchanged. Airway intact. No widened mediastinum or hilar mass. Bones grossly unremarkable. Abdominal series: There are multiple pelvic phleboliths and some anastomotic sutures in the right abdomen. Degenerative changes are seen in the spine. The gas pattern is nonspecific. I see no dilated loops, air-fluid levels, masses nor any free air on the cross-table lateral view. Impression: 1. Nonspecific gas pattern, no obstruction, mass, free air or other acute finding. 2. Surgical clips and anastomotic sutures in the right abdomen, pelvic phleboliths, and degenerative changes spine and bilateral hips. 3. PA chest negative. Signed by Kade Jesus MD 10/13/2016 05:57 P
--- NOTE | 2016-10-13 13:23 | REP ---
CT ABDOMEN PELVIS WITH IV AND ORAL CONTRAST: 10/13/2016. Clinical history: Left lower quadrant pain. History of colon resection for carcinoma. Diverticulosis. Technique: Oral Gastrografin mixture 10 mL in 290 mL of flavored water for two doses per our bowel contrast protocol followed by a bolus of 100 mL Isovue 370. Scanning through the abdomen and pelvis with both coronal and sagittal reconstructions provided. Comparison: CT 08/24/2015. Findings: CT abdomen: Lung bases show some minor dependent atelectatic change epicardial fat pads right greater than left. Heart size not grossly enlarged. Calcified mitral annulus. Small hiatal hernia. No pericardial thickening or effusion. I see no hepatomegaly. Small cyst along the subcapsular region anterior right lobe about 11 mm, unchanged. There are other smaller hypodensities in both lobes too small the characterize, but most likely small cysts. No biliary dilatation or ascites. The gallbladder shows some multiple stones within it, some calcified. Spleen is not enlarged and shows no focal lesion. There is no adrenal lesion. Pancreas shows no mass, ductal dilatation or adjacent inflammatory change. No peripancreatic fluid or adenopathy. Kidneys show function. There are parapelvic cysts on the left. There is no definite hydronephrosis, hydroureter or ureteral stone on either side. The abdominal aorta is without aneurysm but shows atherosclerotic calcifications. No periaortic or other retroperitoneal pathologic sized lymphadenopathy. Small umbilical hernia with only omental fat there. No bowel herniation. The small bowel loops are contrast or fluid-filled but not abnormally dilated. The oral contrast reaches the proximal to mid left colon. There is some surgical clips near the cecum in the right mid abdomen in this patient with prior appendectomy. Terminal ileum shows no inflammatory change or thickening of its wall, its caliber is small though. Distally ileum above it contrast-filled also and unremarkable. No inflammatory changes about the cecum. The right, transverse proximal left colon without acute finding. There is scattered diverticula in the mid to distal left colon without diverticulitis. Bones show facet arthropathy lower lumbar spine. Vacuum phenomenon at L3-4 and L5-S1 and a few millimeters of anterolisthesis of L5 on S1 related to facet arthropathy. No acute compression deformities. Visualized ribs are intact. CT pelvis: The bladder has a Pop catheter within it and is empty. The uterus midline, not enlarged and has somewhat lobulated contour. Adjacent to the fundus to the left as a cystic mass which appears to be arising from the left ovary, this measures 5.3 cm. It has one peripheral calcification and more normal ovarian tissue appears to be draped around it. I do not see right adnexal cyst or mass. No pelvic free fluid. There are inflammatory changes in the perirectal fat with a rectum distended with a moderate amount of stool with the wall thickened and edematous. This suggest some proctitis. The sigmoid and mid to distal portion is collapsed and without inflammatory change. Remainder the sigmoid which is redundant and the distal left colon shows scattered diverticula without signs of diverticulitis or colitis. Lung window review shows no perforation or free air for all CT slices in the abdomen and pelvis. The bony hips, pelvis, SI joints and lumbosacral junction show some degenerative change but no destructive lesion or fracture. Impression: 1. There is evidence of proctitis with thickening of the rectal wall and perirectal fat infiltration. The wall thickening is circumferential and enhancing with the surrounding edema suggesting proctitis not mass. The mid to distal sigmoid has narrower caliber without inflammatory change. 2. 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 3. I see no evidence of colitis or diverticulitis elsewhere, some scattered diverticulosis in the left colon and sigmoid proximally. 4. Multiple gallstones and multiple small hepatic cysts. 5. Cysts in the interpolar lower pole region of the right kidney are parapelvic with no hydronephrosis or hydroureter. No renal stone disease. Signed by Kade Jesus MD 10/13/2016 06:09 P
[2016-10-13] MEDS ORDERED: FLEET OIL RETENTION ENEMA PR ONE (13:30)
[2016-10-13 16:00] VITALS: BP 149/67
--- NOTE | 2016-10-14 12:39 | ED PDOC ---
Post-Departure Follow-Up dr montemayor faxed formal report of ct abd/p for fu iang William Brown MD Oct 14, 2016 12:39
== END 2016-10-13 16:09 | disposition home or self-care (01) ==
LOC: M ED 06:26
DX: K59.00 Constipation, unspecified (principal); R33.9 Retention of urine, unspecified; K62.89 Other specified diseases of anus and rectum; I10 Essential (primary) hypertension; E78.4 Other hyperlipidemia; G30.9 Alzheimer's disease, unspecified; F02.80 Dementia in other diseases classified elsewhere, unspecified severity, without behavioral disturbance, psychotic disturbance, mood disturbance, and anxiety; Z85.038 Personal history of other malignant neoplasm of large intestine; Z87.891 Personal history of nicotine dependence
CPT/HCPCS: 36415; 51702; 74022; 74177; 80048; 80076; 81001; 83605; 83690; 85025; 87086; 93041; 99285; Q9963; Q9967